=== PATIENT | female | born 1960 | race Caucasian/White ===

== ENCOUNTER 2016-11-21 17:11 | Emergency (ER) | payer OTHER ==
[~2016-11-21] VITALS: Ht 160 cm; Wt 83.0 kg
[~2016-11-21 17:11] MED LIST: BENADRYL A12.5 MG/5 PO; CLARITIN10 MG PO; LOVENOX80 MG SUB-Q; PRADAXA150 MG PO; PROVENTIL HFA6.7 GM INH
--- NOTE | 2016-11-22 20:54 | EKG ---
[facility] [address] [facility] [place] [address] Signed Normal sinus rhythm Nonspecific ST abnormality Abnormal ECG No previous ECGs available Confirmed by GUILLE PÉREZ MD ([id number]) on 11/22/2016 8:54:24 PM Electronically Signed By: GUILLE PÉREZ MD 11/22/162053 PATIENT NAME: MELONIE GRAMAJO Electrocardiogram DATE OF : 56 PHYSICIAN: GUILLE PÉREZ MD REPORT #: [id number] REPORT IS CONFIDENTIAL AND NOT TO BE RELEASED WITHOUT AUTHORIZATION
== END 2016-11-21 19:45 | disposition home or self-care (01) ==
LOC: ED 17:11
DX: S06.0X0A Concussion without loss of consciousness, initial encounter (principal); S46.812A Strain of other muscles, fascia and tendons at shoulder and upper arm level, left arm, initial encounter; J45.909 Unspecified asthma, uncomplicated; Z86.711 Personal history of pulmonary embolism; Z98.51 Tubal ligation status; Z90.89 Acquired absence of other organs; Z88.8 Allergy status to other drugs, medicaments and biological substances; W22.8XXA Striking against or struck by other objects, initial encounter
CPT/HCPCS: 70450; 80053; 84484; 85025; 93005; 93010; 96361; 96374; 99284; J2405; J7030